=== PATIENT | female | born 1980 | race Caucasian/White ===

== ENCOUNTER 2020-11-29 16:07 | Emergency (ER) | payer MEDICAID, SELFPAY ==
[2020-11-29 16:09] VITALS: BP 139/90; PULSE 87; RESP 16; TEMP 36.3; O2SAT 100; BMI 21.6
--- NOTE | 2020-11-29 16:19 | ED.DCSUM_ITS ---
History of Present Illness Chief Complaint: Allergic Reaction Informant: Patient Narrative: 40-year-old female presenting for evaluation of allergic reaction after taking doxycycline about 45 minutes prior to arrival. Patient states that she had a tick on her lower abdomen and she is unsure of the timeframe exactly but states it has been less than 24 hours. She was asymptomatic. She was seen at the urgent care and the tick was removed. Patient took her doxycycline about 35 minutes later she started to feel cramping throughout her body. She also experienced nausea and vomiting multiple times. Patient has no known allergy to doxycycline. Patient was otherwise healthy prior to this. She denies any significant medical history. She is allergic to Levaquin. Past Medical History - Allergies and Home Meds Allergies/Adverse Reactions: Allergies levofloxacin [From Levaquin] Adverse Reaction (Verified 11/29/20 16:08) NEEDS FOLLOW-UP Primary Care Physician: OMA,DEFINED [NON-STAFF] - Prior records reviewed: Yes Past Medical History: - - ADHD Lives: Spouse/ Significant Other Smoking Status: Current every day smoker Alcohol: Occasional Drugs: None Review of Systems General: Denies: Chills, Fever, Sweats Eyes: Denies: Visual changes - bilaterally, Diplopia ENT: Denies: Rhinorrhea, Sore throat Cardiovascular: Denies: Chest pain, Palpitations Respiratory: Denies: Dyspnea, Cough, Dyspnea on exertion Gastrointestinal: Reports: Abdominal pain - Orestes cramping, Nausea, Vomiting Genitourinary: Denies: Dysuria, Hematuria Musculoskeletal: Reports: - - Cramping in her extremities. Skin: Reports: - - Small punctate area below the umbilicus with circular red ring around it. Neurological: Denies: Headache, Weakness, Parasthesia Psych: Denies: Depression, Suicidal thoughts, Suicidal ideations Endocrine: Denies: Polyuria, Polydipsia Physical Exam Vital Signs/Narrative: Vital Signs Temp Pulse Resp BP Pulse Ox 11/29/20 16:09 97.3 F L 87 16 139/90 H 100 Inital Vital Signs reviewed: Yes General: Well nourished, No Acute Distress Head: Normocephalic, Atraumatic Eyes: Perrl, EOMI ENT: Moist mucous membranes, No rhinorrhea Cardiovascular: Regular rate, Regular rhythm Respiratory: No distress, CTA bilaterally Abdomen: Soft, Nontender, Nondistended Back: Nontender, Normal Inspection Extremities: Nontender, No edema, - - Patient having cramping in her hands but is able to flex and extend both hands. She has difficulty flexing her first digit on her right hand. Neurovascularly intact. Skin: - - Small punctate area below the umbilicus with circular red ring around it.. Negative for: Diaphoresis, Jaundice Neurological: Alert, Oriented x3, Cranial nerves II-XII grossly intact Psychological: Tearful, Agitated Diagnostic/Tx/Re-eval Laboratory Data 11/29/20 11/29/20 16:25 16:25 WBC 6.2 RBC 4.41 Hgb 15.6 H Hct 45.5 MCV 103.2 H MCH 35.4 H MCHC 34.3 RDW Std Deviation 46.3 H RDW Coeff of Della 12.0 Plt Count 282 MPV 9.7 Immature Gran % (Auto) 0.300 Neut % (Auto) 65.3 Lymph % (Auto) 27.2 [place] % (Auto) 6.3 Eos % (Auto) 0.6 Baso % (Auto) 0.3 Absolute Neuts (auto) 4.1 Absolute Lymphs (auto) 1.70 Nucleated RBC % 0 Sodium 139 Potassium 3.7 Chloride 105 Carbon Dioxide 26.0 Anion Gap 8 BUN 8 Creatinine 0.97 Estim Creat Clear Calc 82.18 Est GFR (MDRD) Af Amer 83 Est GFR (MDRD) Non-Af 68 BUN/Creatinine Ratio 8.3 L Glucose 100 Calcium 9.8 - Medical Decision Making 40-year-old female presenting with nausea/vomiting and muscle cramping after taking doxycycline. Patient also had a tick bite and the tick was removed at urgent care. She does not believe she threw up her doxycycline she states it was all foam. She does not appear to have any rash other than the tick bite area. She is not have any airway issues. Her lungs are clear to auscultation. Patient given Benadryl, Solu-Medrol, Pepcid in the ED as well as IV fluids. Reevaluation she feels much improved. She states that they did not identify what kind of tick this was. She does not know how long it was on but it was less than 24 hours. She does not have any systemic signs or symptoms. In addition to this she states she did not throw up the antibiotics so I feel she can be discharged home. Pression: 1. Allergic reaction to medication 2. History of tick bite ED Disposition - Plan for ED Patient: Disposition: Home or Assisted Living Instructions: Tick Bites, ED ADVERSE DRUG REACTION Allergic Referrals: NOT,DEFINED [NON-STAFF] -
[2020-11-29] MEDS: Ondansetron 4 MG/2 ML Vial IV (16:29)
[2020-11-29] MEDS: DiphenhydrAMINE 50 MG/ML Syringe IV (16:29)
[2020-11-29] MEDS: MethylPREDNISolone 125 MG/2 ML Vial IV (16:29)
[2020-11-29] MEDS: 0.9% Normal Saline 1,000 ML 999 ML IV (16:32)
[2020-11-29] MEDS: Famotidine 200 MG/20 ML MDV 20 MG in 0.9% Normal Saline (Pres. free 8 ML 300 MG IV (16:32)
[2020-11-29 16:40] LABS: Absolute Neutrophil Count 4.1 X10^3/uL (2.0-7.7); Basophil# 0.02 X10^3/uL; Basophil% 0.3 % (0-1); Eosinophil# 0.04 X10^3/uL; Eosinophils% 0.6 % (0-5); Hematocrit 45.5 % (37-47); Hemoglobin 15.6 g/dL (12.0-15.0); Lymphocyte % 27.2 % (19-41); Mean Corp Hgb Conc 34.3 g/dL (32-36); Mean Corpuscular Hgb 35.4 pg (27.0-32.0); Mean Corpuscular Volume 103.2 fL (81-99); Mean Platelet Vol. 9.7 fl (6.2-12.0); Monocyte# 0.39 X10^3/uL; Monocyte% 6.3 % (0-10); NRBC Flagged by Analyzer 0 % (0-5); Neutrophil # 4.07 X10^3/uL (2.7-7.7); Neutrophil % 65.3 % (47-70); Platelet Count 282 K/mm3 (150-450); RBC Distribution Width SD 46.3 fl (35.1-43.9); Red Blood Count 4.41 M/mm3 (4.2-5.4); White Blood Count 6.2 K/mm3 (4.4-11.0)
[2020-11-29 16:54] LABS: Anion Gap 8 (5-15); BUN 8 mg/dL (7-18); BUN/Creat Ratio 8.3 RATIO (10-20); Calcium,Total 9.8 mg/dL (8.5-10.1); Chloride 105 mmol/L (98-107); Creatinine, Serum 0.97 mg/dL (0.55-1.02); EST Glomerular Filtration Rate 68 mL/min (>60); Est Glom Filt Rate - Afr Amer 83 mL/min (>60); Estimated Creatinine Clearance 82.18 ml/min; Glucose 100 mg/dL (74-106); Potassium 3.7 mmol/L (3.5-5.1); Sodium Level 139 mmol/L (136-145)
[2020-11-29 17:26] VITALS: BP 130/75; PULSE 81; RESP 19; O2SAT 100
[2020-11-29 18:23] VITALS: BP 142/99; PULSE 78; RESP 14
[2020-11-29 18:39] LABS: Lyme Ab Screen Interpretation REF LAB
[2020-12-01 18:43] LABS: Lyme Scn Total Ab w/Rflx <0.91 ISR (0.00-0.90)
== END 2020-11-29 18:24 | disposition home or self-care (01) ==
PROVIDERS: Emergency Provider Student in an Organized Health Care Education/Training Program; PCP Family Medicine
DX: R25.2 Cramp and spasm (principal); R11.2 Nausea with vomiting, unspecified; T36.4X5A Adverse effect of tetracyclines, initial encounter; F17.200 Nicotine dependence, unspecified, uncomplicated
CPT/HCPCS: 36415; 80048; 85025; 86618; 96365; 96375; 99284; J7030; J2405; J3490

== ENCOUNTER → 2021-07-03 13:42 | Outpatient (CLI) | payer MEDICAID, SELFPAY | PROVIDERS: PCP Family Medicine; Visit Provider Physician Assistant | DX: Z11.52 Encounter for screening for COVID-19 (principal) | CPT/HCPCS: 87635; U0005; U0003 ==